=== PATIENT | male | born 1955 | race Caucasian/White ===

== ENCOUNTER 2018-06-26 07:01 | Outpatient (CLI) | payer OTHER, SELFPAY ==
[2018-06-26 08:22] LABS: FREE T4 1.01 ng/dL (0.76-1.46); TSH 21.87 uIU/mL (0.358-3.74)
[2018-06-26 21:08] LABS: T3, Total 241 ng/dl (97-169)
== END 2018-06-26 07:21 ==
PROVIDERS: PCP Internal Medicine; Visit Provider Internal Medicine
DX: E89.0 Postprocedural hypothyroidism (principal)
CPT/HCPCS: 36415; 84439; 84443; 84480

== ENCOUNTER 2018-09-04 07:08 | Outpatient (CLI) | payer OTHER, SELFPAY ==
[2018-09-04 09:10] LABS: FREE T4 1.01 ng/dL (0.76-1.46); TSH 23.04 uIU/mL (0.358-3.74)
[2018-09-05 09:25] LABS: PSA, Screening <0.1 ng/ml (0-4.5)
== END 2018-09-04 07:28 ==
PROVIDERS: PCP Internal Medicine; Visit Provider Internal Medicine
DX: E03.9 Hypothyroidism, unspecified (principal); Z12.5 Encounter for screening for malignant neoplasm of prostate
CPT/HCPCS: 36415; 84153; 84439; 84443

== ENCOUNTER 2019-02-27 14:32 | Outpatient (CLI) | payer OTHER, SELFPAY ==
[2019-02-27 15:52] LABS: FREE T4 1.12 ng/dL (0.76-1.46); TSH 9.45 uIU/mL (0.36-3.74)
== END 2019-02-27 14:52 ==
PROVIDERS: PCP Internal Medicine; Visit Provider Internal Medicine
DX: E03.9 Hypothyroidism, unspecified (principal)
CPT/HCPCS: 36415; 84439; 84443

== ENCOUNTER 2019-09-02 01:29 | Outpatient (CLI) | payer OTHER, SELFPAY ==
[2019-09-02 16:39] LABS: Abs Immature Grans 0.01 k/cumm (0.0-0.09); Absolute Basophil Count 0.06 k/cumm (0.0-0.2); Absolute Eosinophil Count 0.13 k/cumm (0.0-0.7); Absolute Lymphocyte Count 1.55 k/cumm (1.2-3.4); Absolute Monocyte Count 0.49 k/cumm (0.11-0.7); Absolute Neutrophil Count 4.72 k/cumm (1.2-6.7); Basophils % 0.9; Eosinophils % 1.9; HCT 38.8 % (40.0-50.0); HGB 11.7 g/dL (13.5-17.5); Immature Grans % 0.1 %; Lymphocytes % 22.3; Mean Corp. HGB Concentration 30.2 g/dL (32.0-36.0); Mean Corpuscular Hemoglobin 23.7 pg (27.0-33.0); Mean Corpuscular Volume 78.5 fL (80-95); Mean Platelet Volume 9.8 fL (8.0-11.0); Neutrophils % 67.8; Platelet Count 305 x1000/uL (130-400); RBC 4.94 m/cumm (4.50-6.00); RBC Distribution Width 15.5 % (11.8-14.1); White Blood Cell Count 6.96 k/cumm (4.4-10.8)
[2019-09-02 17:47] LABS: ALT 44 U/L (16-63); AST 47 U/L (15-37); Albumin 3.9 g/dL (3.4-5.0); Alkaline Phosphatase 89 U/L (46-116); Anion Gap 9.1 mmol/L (3-11); BUN 16 mg/dL (7-18); Bilirubin, Total 0.3 mg/dL (0.2-1.0); CO2 26.9 mmol/L (21.0-32.0); Calcium 8.8 mg/dL (8.5-10.1); Calculated LDL 74 mg/dL (<100); Chloride 105 mmol/L (98-107); Cholesterol 134 mg/dL (<200); Glucose 95 mg/dL (74-106); HDL Cholesterol 29 mg/dL (40-60); Potassium 4.4 mmol/L (3.5-5.1); Sodium 141 mmol/L (136-145); TSH 2.29 uIU/mL (0.36-3.74); Total Protein 6.8 g/dL (6.4-8.2); Triglyceride 159 mg/dL (<150)
[2019-09-02 18:07] LABS: FREE T4 1.39 ng/dL (0.76-1.46)
[2019-09-04 11:09] LABS: PSA, Screening <0.1 ng/mL (0.0-4.5)
== END 2019-09-02 01:49 ==
PROVIDERS: PCP Internal Medicine; Visit Provider Internal Medicine
DX: C61 Malignant neoplasm of prostate (principal); E03.9 Hypothyroidism, unspecified; E78.00 Pure hypercholesterolemia, unspecified
CPT/HCPCS: 36415; 80053; 80061; 84153; 84439; 84443; 85025

== ENCOUNTER 2020-09-16 02:54 | Outpatient (CLI) | payer OTHER, SELFPAY ==
[2020-09-16 07:27] LABS: Abs Immature Grans 0.02 10^3/uL (0.0-0.06); Absolute Basophil Count 0.09 10^3/uL (0.0-0.2); Absolute Eosinophil Count 0.19 10^3/uL (0.0-0.7); Absolute Lymphocyte Count 1.96 10^3/uL (1.2-3.4); Absolute Neutrophil Count 3.64 10^3/uL (1.2-6.7); Basophils % 1.4; HCT 41.5 % (40.0-50.0); HGB 12.2 g/dL (13.5-17.5); Immature Grans % 0.3; Lymphocytes % 30.6; MCH 23.4 pg (27.0-33.0); MCHC 29.4 % (32.0-36.0); MCV 79.7 fL (80-95); MPV 9.6 fL (8.0-11.0); Monocytes % 7.8; Neutrophils % 56.9; Nucleated RBC 0 %; Platelet Count 314 10^3/uL (130-400); RBC 5.21 10^6/uL (4.36-5.78); RDW 14.9 % (11.8-14.1); RDW-SD 43.2 fL
[2020-09-16 08:23] LABS: Anion Gap 10.3 mmol/L (3-11); BUN 13 mg/dL (7-18); CO2 28.7 mmol/L (21.0-32.0); CREATININE 1.1 mg/dL (0.70-1.30); Calculated LDL 115 mg/dL (<100); Chloride 103 mmol/L (98-107); Cholesterol 165 mg/dL (<200); Glucose 83 mg/dL (74-106); HDL Cholesterol 31 mg/dL (40-60); Potassium 4.5 mmol/L (3.5-5.1); Sodium 142 mmol/L (136-145); TSH 20.72 uIU/mL (0.36-3.74); Triglyceride 99 mg/dL (<150)
[2020-09-16 08:40] LABS: FREE T4 1.02 ng/dL (0.76-1.46)
[2020-09-16 16:55] LABS: PSA, Screening <0.1 ng/mL (0.0-4.5)
== END 2020-09-16 02:55 | disposition home or self-care (01) ==
LOC: LBO 02:54
PROVIDERS: PCP Internal Medicine; Visit Provider Internal Medicine
DX: C61 Malignant neoplasm of prostate (principal); E78.00 Pure hypercholesterolemia, unspecified; D50.9 Iron deficiency anemia, unspecified; E03.9 Hypothyroidism, unspecified
CPT/HCPCS: 36415; 80048; 80061; 84153; 84439; 84443; 85025

== ENCOUNTER → 2024-09-19 11:38 | Outpatient (BNVA) | payer MEDICARE, SELFPAY | PROVIDERS: PCP Internal Medicine; Referring Provider Internal Medicine; Visit Provider Physical Therapy Assistant | DX: Z12.11 Encounter for screening for malignant neoplasm of colon (principal) | CPT/HCPCS: S0285 ==

== ENCOUNTER 2024-10-04 07:57 | Day surgery (SDC) | payer MEDICARE, OTHER, SELFPAY ==
--- NOTE | 2024-10-03 16:09 | W.PM.DSUDISC ---
Date of service: 10/04/24 Discharge Plan Disposition Patient Disposition: Home Condition: Good Discharge Details Reason For Visit: Screening colonoscopy Attending Provider: Rene Reed Primary Care Provider: Tayo Jackson Home Meds and New Rx's Prescriptions: Continued sildenafil 100 mg tablet 100 mg PO DAILY PRN Rx Instructions: administer 30 minutes to 4 hours before activity folic acid 1 mg tablet 1 mg PO DAILY levothyroxine [Synthroid] 137 mcg tablet 137 mcg PO DAILY alprostadil 40 mcg recon soln 40 mcg intra-cavernosal ONCE cyanocobalamin (vitamin B-12) 1,000 mcg tablet 1,000 mcg PO DAILY diclofenac sodium [Arthritis Pain (diclofenac)] 1 % gel 1 g topical TID Patient Comments: prn and rare Rx Instructions: for thumb pain ibuprofen 200 mg tablet 200 mg PO Q6H PRN Discontinued bisacodyl [Dulcolax (bisacodyl)] 5 mg tablet,delayed release (DR/EC) 5 mg PO ONCE Qty: 4 0RF Rx Instructions: Take per colonoscopy instructions provided by ordering providers office polyethylene glycol 3350 17 gram/dose powder 17 g PO ONCE Qty: 238 0RF Rx Instructions: Take per colonoscopy instructions provided by ordering providers office Discharge Instructions Instructions: Colon polyps, Diverticulosis Additional Instructions: Hang, it was great to meet you today, and hope you feel well after the procedure. Things went very smoothly. I did find, and removed, 2 polyps today. As we talked about beforehand, these will be sent to the pathologist for them to review. Once I know the nature of these polyps, I will be in touch with any other recommendations. Incidentally, he also have just a little bit of diverticulosis as well. Diverticula are little weak spots in the muscular layer of the colon wall that cause the inside lining, or mucosa, to pooch or pocket outwards slightly. These are pockets are called diverticulum, the condition of having them is known as diverticulosis. If they become infected or inflamed we refer to it as diverticulitis. Hopefully years will never bother you. I will attach some basic information here about colon rectal polyps, as well as diverticulosis. If you need anything at all, please do not hesitate to ask, otherwise my office will be in touch once we have all the results, I will be certain to get them to Dr. Jackson as well. 1. If tolerated, consume a soft, low fiber diet for 1-2 days. 2. Do not drive, drink alcohol, operate machinery, make critical decisions, or do activities that require coordination or balance for 24 hours. 3. Because air was put into your colon during the procedure, expelling air from your rectum (passing gas or farting) is normal. 4. You may not have a bowel movement for 1-3 days because of the colonoscopy prep. This is normal. 5. Go directly to the emergency room if you notice any of the following: Develop chills (warm to touch), or if you have a thermometer and your temperature is above 101 Difficulty breathing or difficultly swallowing Persistent vomiting Severe abdominal pain, other than gas cramps Severe chest pain Black, tarry stools Any bleeding ? exceeding one tablespoon 6. Call your physician if the site where your intravenous was started becomes red, swollen, painful, and warm to touch. 7. Your physician has reviewed your pre-procedure medications. Please continue to take those medications as previously ordered. You will be given specific information/education regarding any changes to your medications before leaving. Stand Alone Forms: Anesthesia Discharge Inst., Kenyetta Rivera (DSU) Activity:: Activity as Tolerated Diet:: As Tolerated Discharge Orders Discharge Orders: Discharge Order (Routine); Ordered 10/03/24 Ordered By: Rene Reed DS: Diagnosis Discharge Diagnosis (1) Encounter for screening colonoscopy: Status: Acute Asessment and Plan: Follow-up on polypectomy results
--- NOTE | 2024-10-03 16:10 | COLE_ITS ---
Date of service: 10/04/24 Time of Service: 10:14 Colonoscopy Report Date of procedure: 10/04/24 Pre-op diagnosis general: Screening colonoscopy Post-op diagnosis procedure note: other (Colon polyps, diverticulosis) Procedure: Colonoscopy with polypectomy Surgeon: Rene Reed Anesthesia Type: General:No Airway Estimated blood loss (mL): 5 Pathology: other (0.25 cm pedunculated polyp at 80 cm, 0.25 cm flat polyp at 75 cm) Complications: None Disposition: same day Indications: Hang is a 69-year-old man who needs his next screening colonoscopy Prep: Miralax/Dulcolax Procedure Start Time: 09:41 Procedure End Time: 09:57 Retraction Time: 12 Findings: Sigmoid diverticulosis, 0.25 cm pedunculated polyp at 80 cm, 0.25 cm flat polyp at 75 cm Procedure Description: After the induction of anesthesia, and with the patient in left lateral decubitus position, I began by performing an external anorectal exam.? Perineum and skin were normal, as was the anal verge.? There was no evidence of external hemorrhoids.? Next, I performed a digital rectal exam.? I did not appreciate any abnormal findings.? Next, I advanced a colonoscope into the rectal vault.? I performed retroflexion.? This appeared normal.? Using insufflation, I then advanced the colonoscope beyond the rectal folds and into the sigmoid colon before advancing towards the cecum.? There is some sigmoid diverticulosis.? The scope was noted to be in the cecum by identification of the ileocecal valve and appendiceal orifice.? I then began withdrawing the colonoscope using repeated irrigation as necessary for full evaluation of the colonic mucosa. Around 80 cm from the anal verge was a 0.25 cm slightly pedunculated polyp. This was removed with cold forceps. There was minimal bleeding. Around 75 cm from the anal verge was another polyp. This was a little more flat. This was about 0.25 cm as well. This was removed piecemeal with cold forceps with minimal bleeding. ?Once the scope was withdrawn to the level of the rectum, great care was taken to examine portions of the rectal folds.? Finally, the scope was withdrawn and the patient was brought to the same-day surgery recovery unit as the anesthetic wore off. ?The findings and instructions were shared with the patient prior to discharge. [facility]el [facility] Right Colon: 3 Left Colon: 3 Transverse Colon: 3 Total Score: 9
[2024-10-04 08:45] VITALS: BP 125/88; PULSE 62; RESP 16; TEMP 36.4; O2SAT 100
--- NOTE | 2024-10-04 08:56 | ANES.PREOP_ITS ---
General Info Date of Service Date Performed: 10/04/24 Height: 5 ft 7 in Weight: 76.2 kg Body Mass Index (BMI): 26.3 Surgical Procedure: Operation Date: 10/04/24 09:50 Proposed Procedure Side Surgeon p Kole Reed MD Meds Allergies and Home Medications Allergies Allergy/AdvReac Type Severity Reaction Status Date / Time No Known Allergies Allergy Unverified 10/04/24 08:43 Home Medication ?Medication ?Instructions ?Recorded alprostadil 40 mcg intracavernosal 40 mcg intra-cavern osal ONCE 08/02/24 solution cyanocobalamin (vitamin B-12) 1,000 mcg PO DAILY 08/02 1,000 mcg tablet diclofenac sodium 1 % topical gel 1 g topical TID 07/12 06/04 (Arthritis Pain (diclofenac)) folic acid 1 mg tablet 1 mg PO DAILY 08/02/24 ibuprofen 200 mg tablet 200 mg PO Q6H PRN 08/02/24 levothyroxine 137 mcg tablet 137 mcg PO DAILY 08/02/24 (Synthroid) sildenafil 100 mg tablet 100 mg PO DAILY PRN 08/02/24 Current Visit Medications: Current Medications Generic Name Dose Route Start Last Admin Trade Name Freq PRN Reason Stop Dose Admin Ringer's Solution 1,000 mls @ 80 mls/hr 10/04/24 06:00 IV 10/04/24 23:59 INFUSION KELLY IV Miscellaneous Supplies 1 each 10/04/24 06:00 Iv Access IV 10/04/24 23:59 DIRECTED KELLY Ondansetron HCl 4 mg 10/03/24 16:11 Ondansetron 4 Mg/2 Ml Vial IVP 11/02/24 16:10 Q4H PRN PRN Nausea / Vomiting Sodium Chloride 0 ml 10/04/24 06:00 Normal Saline Flush 10 Ml Syr IV 10/04/24 23:59 PRN PRN Sodium Chloride 0 ml 10/04/24 06:00 Normal Saline 10 Ml Vial IJ 10/04/24 23:59 DIRECTED PRN Sterile Water 0 ml 10/04/24 06:00 Water,Injection,Sterile 10 Ml Vial IJ 10/04/24 23:59 DIRECTED PRN PFSH Active Problems Active Problems: Problem Status Onset Code Encounter for screening colonoscopy Acute Z12.11 Medical History Medical History Folate deficiency Vitamin B12 deficiency Celiac disease Initially presented with long standing iron deficiency. Confirmed with serology and EGD w/ biopsy consistent with celiac. He has seen nutrition and is adhering to a gluten free diet. Iron deficiency anemia Elevated cholesterol Arthralgia of right hand Hx of adenomatous colonic polyps Carcinoma of prostate Hypothyroidism Tobacco Smoking/Tobacco Use Status: Never Alcohol Alcohol Intake: current Alcohol intake frequency: a few times a month Substance Use Substance use type: does not use Vital Signs and Lab Results Vital Signs Most Recent Vital Signs in EMR: Most Recent Vital Signs Temp Pulse Resp BP Pulse Ox 36.4 C L 62 16 125/88 100 10/04/24 08:45 10/04/24 08:45 10/04/24 08:45 10/04/24 08:45 10/04/24 08:45 Anesthesia Assessment and Plan Anesthesia History Personal History: No History of Anesthesia Complications Family History: No Family History of Anesthesia Complications Exercise Tolerance Exercise Tolerance: Metabolic Equivalents>4 Pertinent Negatives Pertinent Negatives: No Symptoms of GERD, No Major Cardiovascular Symptoms or Complaints, No Major Pulmonary Symptoms or Complaints and No History of CVA/TIA Cardiac & Pulmonary Exam Cardiac Exam: Normal S1/S2 Heart Sounds Pulmonary Exam: Clear Bilateral Breath Sounds Implantable Cardiac Device Does patient have a Pacemaker or an ICD?: No Airway Exam Known Difficult Airway: No Mallampati Class: 3 Mouth Opening: Narrow (< 3cm) Thyromental Distance: Less than 3 cm Neck Range of Motion: Full ROM Neck Circumference: Normal Teeth Condition: Generalized Poor Dentition and Removable Dentures/Plates Upper (partial left at home) ASA Classification ASA Score: ASA 2 Emergency Case?: No NPO Status NPO Status: NPO Clears >2 hours, Solids >8 hours Anesthesia Plan Resuscitation Status: Full Code Anesthesia Technique: General Anesthesia Airway Planned: Natural Airway Monitors Used: Standard Monitors
[2024-10-04 08:58] VITALS: BMI 26.3
[2024-10-04] MEDS: Lactated Ringers 1,000 ML 80 ML IV (09:03)
--- NOTE | 2024-10-04 09:49 | BOWEL_PTH ---
PATIENT: Hang Oneill LOC: [facility] U#:[id number] AGE/SX: 69/M ROOM: RE10/04/[address]: Rene Reed MD : [id number] BED: DIS: 10/04/2024 SPEC #: [id number] RECD: 10/04/24 12:26 STATUS: NAOMI REQ #: [id number] CASA: 10/04/24 09:[address]: Rene Reed DEPT: Surgical Specimen RECD BY: Maria Antonia Thompson ENTERED: 10/04/24 12:28 SP TYPE: Bowel OTHR DR: Tayo Jackson Tissues: 1 - BIOPSY BOWEL 2 - BIOPSY BOWEL Procedures: GROSS AND MICRO LEVEL 4 Comments: [id number]
[2024-10-04 10:01] VITALS: BP 107/76; PULSE 68; RESP 16; TEMP 36.6; O2SAT 97
[2024-10-04 10:32] VITALS: BP 126/77; PULSE 56; RESP 16; TEMP 36.2; O2SAT 98
--- NOTE | 2024-10-04 10:37 | W.ANESPOSTOP ---
Postoperative Evaluation Date, Time and Location Date Performed: 10/04/24 Time Performed: 10:22 Patient Location: Day Surgery Unit Vital Signs Most Recent Imported Vital Signs: Most Recent Vital Signs Temp Pulse Resp BP Pulse Ox 36.2 C L 56 L 16 126/77 98 10/04/24 10:32 10/04/24 10:32 10/04/24 10:32 10/04/24 10:32 10/04/24 10:32 Pain Score Most Recent Pain Score: Most Recent Pain Score Pain Level 0 10/04/24 10:32 Assessment Mental Status: Awake (Alert & Oriented to Patient Baseline) Airway and Respiratory Function: Patent airway with normal (patient baseline) respiratory exam Cardiovascular Function: Hemodynamically Stable Hydration Status: Adequately Hydrated Nausea & Vomiting: No Nausea or Vomiting Pain: Pt. Denies Any Pain Peripheral Nerve Block: Patient did not receive a nerve block
== END 2024-10-04 10:56 | disposition home or self-care (01) ==
LOC: SUR 08:00
PROVIDERS: PCP Orthopaedic Surgery Foot and Ankle Surgery; Visit Provider Surgery
PROC: 0DJD8ZZ Inspection of Lower Intestinal Tract, Via Natural or Artificial Opening Endoscopic (ICD-10-PCS; CPT 45378; principal; 2024-10-04 09:45)
DX: Z12.11 Encounter for screening for malignant neoplasm of colon (principal); K57.30 Diverticulosis of large intestine without perforation or abscess without bleeding; D12.4 Benign neoplasm of descending colon
CPT/HCPCS: 45380; 88305; J2704

== ENCOUNTER 2024-11-13 10:14 | Outpatient (CLI) | payer MEDICARE, OTHER, SELFPAY ==
[2024-11-13 07:57] LABS: Abs Immature Grans 0.02 10^3/uL (0.0-0.06); HCT 47.7 % (40.0-50.0); HGB 15.8 g/dL (13.5-17.5); Immature Grans % 0.3 %; MCH 30.9 pg (27.0-33.0); MCHC 33.1 % (32.0-36.0); MCV 93 fL (80-95); MPV 9.6 fL (8.0-11.0); Platelet Count 231 10^3/uL (130-400); RBC 5.12 10^6/uL (4.36-5.78); RDW 12.2 % (11.8-14.1); RDW-SD 42.1 fL; WBC 5.72 10^3/uL (4.4-10.8)
[2024-11-13 08:59] LABS: Iron 83 ug/dL (65-175); Total Iron Binding Capacity 362 ug/dL (250-450); Transferrin Sat 23 % (20-55)
[2024-11-13 09:13] LABS: ALT 24 U/L (16-63); AST 25 U/L (15-37); Albumin 4.3 g/dL (3.4-5.0); Alkaline Phosphatase 89 U/L (46-116); Anion Gap 9.3 mmol/L (3-11); BUN 12 mg/dL (7-18); Bilirubin, Total 0.9 mg/dL (0.2-1.0); CO2 28.7 mmol/L (21.0-32.0); Calcium 9.4 mg/dL (8.5-10.1); Calculated LDL 93 mg/dL (<100); Chloride 106 mmol/L (98-107); Cholesterol 151 mg/dL (<200); Estimated GFR 93.61 (mL/min/1.73m2); Folate > 20.0 ng/mL (8.6-20.0); Glucose 93 mg/dL (74-106); HDL Cholesterol 46 mg/dL (>or=40); Potassium 4.3 mmol/L (3.5-5.1); Sodium 144 mmol/L (136-145); TSH (W/Ref FT4) 0.80 uIU/mL (0.36-3.74); Total Protein 7.4 g/dL (6.4-8.2); Triglyceride 60 mg/dL (<150); Vitamin B12 534 pg/mL (193-986)
[2024-11-13 17:29] LABS: PSA, Screening <0.1 ng/mL (<=4.5)
== END 2024-11-13 10:15 | disposition home or self-care (01) ==
LOC: LBO 10:15
PROVIDERS: PCP Orthopaedic Surgery Foot and Ankle Surgery; Visit Provider Orthopaedic Surgery Foot and Ankle Surgery
DX: K90.0 Celiac disease (principal); Z12.5 Encounter for screening for malignant neoplasm of prostate; E03.9 Hypothyroidism, unspecified; Z13.1 Encounter for screening for diabetes mellitus; D50.9 Iron deficiency anemia, unspecified; Z13.220 Encounter for screening for lipoid disorders
CPT/HCPCS: 36415; 80053; 80061; 84153; 82607; 82746; 83036; 83540; 83550; 84443; 85025